=== PATIENT | female | born 1960 | race Caucasian/White ===

== ENCOUNTER 2016-09-26 00:27 | Emergency (ER) | payer SELFPAY ==
[~2016-09-26] VITALS: Wt 90.9 kg
== END 2016-09-26 04:38 | disposition left against medical advice (07) ==
LOC: FTE 00:27 → E/R 04:38
DX: Z53.21 Procedure and treatment not carried out due to patient leaving prior to being seen by health care provider (principal)

== ENCOUNTER 2016-09-26 13:10 | Emergency (ER) | payer OTHER ==
[~2016-09-26] VITALS: Ht 157.5 cm; Wt 89.0 kg
[2016-09-26 13:30] VITALS: Ht 157.5 cm; Wt 89.0 kg
[2016-09-26] MEDS ORDERED: ASPIRIN 325 MG TAB PO STA (20:42)
--- NOTE | 2016-09-26 20:45 | ERD ---
ER Documentation Chief Complaint Date/Time DATE: 09/26/16 TIME: 20:44 Chief Complaint htn asymptomatic HPI 56-year-old female with history of dyslipidemia ambulatory to the ED for evaluation of hypertension. Her has been very ill and she was at the care center yesterday. The nurse took her blood pressure told her it was high and that she should have it evaluated. Patient has also noticed occasional, transient episodes of unprovoked, vague, nonradiating, left upper chest discomfort. No accompanying shortness of breath, nausea, vomiting or diaphoresis. She denies leg pain or swelling. No abdominal pain or back pain. No headache or neck pain. Denies visual changes, focal weakness or numbness. No dysuria, polyuria, hematuria or flank pain. No URI symptoms or cough. No skin rash. No fevers or chills. Admits to feeling increasingly anxious recently due to her 's illness. ROS All systems reviewed and are negative except as per history of present illness. PMhx/Soc Reviewed in chart. As per HPI. History of Surgery: Yes ( x 2) Anesthesia Reaction: No Hx Neurological Disorder: No Hx Respiratory Disorders: No Hx Cardiac Disorders: No Hx Psychiatric Problems: No Hx Miscellaneous Medical Probl: No Hx Alcohol Use: No Hx Substance Use: No Hx Tobacco Use: No Smoking Status: Never smoker FmHx Hypertension but no stroke, diabetes, coronary artery disease or cancer Physical Exam Vitals Vital Signs Date Time Temp Pulse Resp B/P Pulse Ox O2 Delivery O2 Flow Rate FiO2 09/26/16 21:15 95 17 140/92 100 Room Air 09/26/16 13:30 98.1 99 20 178/85 99 Physical Exam Const: Alert. No acute distress. Head: Atraumatic Eyes: Normal Conjunctiva ENT: Normal External Ears, Nose and Mouth. Neck: Full range of motion. Nontender. No JVD. Resp: Breath sounds are equal and clear to auscultation bilaterally Cardio: Regular rate and rhythm, no murmurs. No chest wall tenderness Abd: Soft, non tender, non distended. Normal bowel sounds Skin: No petechiae or rashes Back: No midline or flank tenderness Ext: No cyanosis, or edema. No calf swelling or tenderness Neur: Awake and alert Psych: Appears anxious but not depressed. Result Diagram: 09/26/16201909/26/162019 Results 24 hrs Laboratory Tests Test 09/26/16 20:20 White Blood Count 7.610^3/ul Red Blood Count 4.8610^6/ul Hemoglobin 14.2g/dl Hematocrit 42.7% Mean Corpuscular Volume 87.9fl Mean Corpuscular Hemoglobin 29.2pg Mean Corpuscular Hemoglobin Concent 33.3g/dl Red Cell Distribution Width 14.2% Platelet Count 51059^3/UL Mean Platelet Volume 10.2fl Neutrophils % 68.5% Lymphocytes % 20.6% Monocytes % 8.5% Eosinophils % 1.1% Basophils % 0.8% Nucleated Red Blood Cells % 0.0/100WBC Neutrophils # 5.210^3/ul Lymphocytes # 1.610^3/ul Monocytes # 0.610^3/ul Eosinophils # 0.110^3/ul Basophils # 0.110^3/ul Nucleated Red Blood Cells # 0.010^3/ul Prothrombin Time 12.9Sec Prothrombin Time Ratio 1.0 INR International Normalized Ratio 0.97 Activated Partial Thromboplast Time 33.9Sec Sodium Level 145mmol/L Potassium Level 3.6mmol/L Chloride Level 102mmol/L Carbon Dioxide Level 28mmol/L Anion Gap 19 Blood Urea Nitrogen 10mg/dl Creatinine 0.66mg/dl Glucose Level 133mg/dl Calcium Level 9.6mg/dl Total Bilirubin 0.1mg/dl Direct Bilirubin 0.00mg/dl Indirect Bilirubin 0.1mg/dl Aspartate Amino Transf (AST/SGOT) 24IU/L Alanine Aminotransferase (ALT/SGPT) 19IU/L Alkaline Phosphatase 98IU/L Troponin I < 0.012ng/ml Total Protein 8.0g/dl Albumin 4.2g/dl Globulin 3.80g/dl Albumin/Globulin Ratio 1.10 Current Medications Medications (Trade) Dose Ordered Sig/Mike Route PRN Reason Start Time Stop Time Status Last Admin Dose Admin Aspirin (Aspirin) 325 mg ONCE STAT PO 09/26/16 20:42 09/26/16 20:44 DC 09/26/16 21:15 RHYTHM STRIP INTERPRETATION: Time: 20:47. Sinus rhythm. Ventricular rate 74. No ectopy. Indication: Hypertension and chest pain. EKG: Time: 20:49. Sinus rhythm. Ventricular rate 80, normal TX and QRS intervals. No acute ST segment elevation or depression. No axis deviation or ectopy. EP Impression: Normal EKG IMAGING: PROCEDURE: XR Chest. CLINICAL INDICATION: Chest pain TECHNIQUE: A single portable view of the chest was obtained. COMPARISON: None FINDINGS: The cardiomediastinal silhouette is within normal limits. The lungs and pleural spaces are clear. The soft tissues and osseous structures are unremarkable. IMPRESSION: No acute cardiopulmonary disease. RPTAT: HPNM Physician Stewart Date Time Electronically viewed and signed by Physician Stewart on 09/26/2016 21 :25 / Procedures/MDM DOCUMENTS REVIEWED: ED nurse, no prior records available REEXAMINATION/REEVALUATION: Time: 22:15 Doing well. Asymptomatic. Sinus rhythm without ectopy. Blood pressure 140/92. MEDICAL DECISION MAKIN-year-old female with history of dyslipidemia ambulatory to the ED for evaluation of hypertension and atypical chest pain. No ischemic EKG changes, elevated troponin or other signs of acute coronary syndrome. No radiographic evidence of pneumonia or pneumothorax. PERC negative and low risk for pulmonary embolism. Doubt aortic dissection. Symptoms likely related to anxiety although patient and family clearly understand that a cardiac etiology is not ruled out. Patient low risk for an acute event and she will need urgent follow-up within 72 hours for recheck of her blood pressure and further risk stratification. Stable for discharge precautionary instructions and outpatient follow-up as counseled. Counseled patient and family regarding diagnostic workup, diagnosis and need for followup. Understands to return to ED if symptoms recur, worsen or any other concerns. Departure Diagnosis: Primary Impression: Hypertension Hypertension type: essential hypertension Qualified Code: I10 - Essential hypertension Additional Impression: Chest pain of uncertain etiology Condition: Stable Patient Instructions: Chest Pain, Uncertain Cause, High Blood Pressure ( Hypertension) SUNG CANTOR MD Sep 26, 2016 20:45
[2016-09-26 20:49] LABS: ADD SCAN DIFF NO
[2016-09-26 20:52] LABS: CHLORIDE 102 mmol/L (97-110)
[2016-09-26 20:53] LABS: ALBUMIN 4.2 g/dl (3.3-4.9); SODIUM 145 mmol/L (135-144)
[2016-09-26 20:54] LABS: INR 0.97; POTASSIUM 3.6 mmol/L (3.5-5.1); PROTIME 12.9 Sec (12.2-14.2)
[2016-09-26 20:55] LABS: PARTIAL THROMBOPLASTIN TIME 33.9 Sec (25.0-35.0)
[2016-09-26 20:56] LABS: ALANINE AMINOTRANSFERASE 19 IU/L (13-69); ALKALINE PHOSPHATASE 98 IU/L (42-121); ANION GAP 19 (8-16); ASPARTATE AMINO TRANSFERASE 24 IU/L (15-46); BILIRUBIN,INDIRECT 0.1 mg/dl (0-1.1); BILIRUBIN,TOTAL 0.1 mg/dl (0.2-1.3); BLOOD UREA NITROGEN 10 mg/dl (7-20); CARBON DIOXIDE 28 mmol/L (21-31); CREATININE 0.66 mg/dl (0.44-1.00); GLUCOSE 133 mg/dl (70-220)
[2016-09-26 20:57] LABS: CALCIUM 9.6 mg/dl (8.4-10.2)
--- NOTE | 2016-09-26 21:26 | RADRPT ---
PROCEDURE: XR Chest. CLINICAL INDICATION: Chest pain TECHNIQUE: A single portable view of the chest was obtained. COMPARISON: None FINDINGS: The cardiomediastinal silhouette is within normal limits. The lungs and pleural spaces are clear. The soft tissues and osseous structures are unremarkable. IMPRESSION: No acute cardiopulmonary disease. RPTAT: HPNM Physician Stewart Date Time Electronically viewed and signed by Keon Blanco Physician on 09/26/2016 21:25 /
[2016-09-26 21:44] LABS: TROPONIN-I < 0.012 ng/ml (0.00-0.12)
[2016-09-26 21:48] LABS: BASOPHIL # 0.1 10^3/ul (0.0-0.1); BASOPHILS % 0.8 % (0.0-2.0); EOSINOPHILS # 0.1 10^3/ul (0.0-0.5); EOSINOPHILS % 1.1 % (0.0-7.0); HEMATOCRIT 42.7 % (37.0-47.0); HEMOGLOBIN 14.2 g/dl (12.0-16.0); LYMPHOCYTES # 1.6 10^3/ul (0.8-2.9); LYMPHOCYTES % 20.6 % (15.0-51.0); MEAN CORPUSCULAR HEMOGLOBIN 29.2 pg (29.0-33.0); MEAN CORPUSCULAR HGB CONC 33.3 g/dl (32.0-37.0); MEAN CORPUSCULAR VOLUME 87.9 fl (82.0-101.0); MEAN PLATELET VOLUME 10.2 fl (7.4-10.4); MONOCYTE # 0.6 10^3/ul (0.3-0.9); MONOCYTES % 8.5 % (0.0-11.0); NEUTROPHIL # 5.2 10^3/ul (1.6-7.5); NEUTROPHILS % 68.5 % (39.0-77.0); PLATELET COUNT 412 10^3/UL (140-415); RED BLOOD COUNT 4.86 10^6/ul (4.20-5.40); RED CELL DISTRIBUTION WIDTH 14.2 % (11.5-14.5); WHITE BLOOD COUNT 7.6 10^3/ul (4.8-10.8)
[2016-09-26 22:58] VITALS: BP 140/90; PULSE 90; RESP 17
== END 2016-09-26 22:59 | disposition home or self-care (01) ==
LOC: E/R 13:10
DX: I10 Essential (primary) hypertension (principal)
CPT/HCPCS: 36415; 71010; 80053; 84484; 85025; 85610; 85730; 93005; Z7502; Z7610

== ENCOUNTER 2016-09-30 15:30 | Emergency (ER) | payer OTHER ==
[~2016-09-30] VITALS: Ht 160 cm; Wt 93.0 kg
[2016-09-30 15:34] VITALS: Ht 160 cm; Wt 93.0 kg
[2016-09-30] MEDS ORDERED: HYD25 PO (16:46)
--- NOTE | 2016-09-30 16:53 | ERD ---
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 The patient states elevated blood pressure. She describes no symptoms. No headache chest pain or shortness of breath. She is tearful and states that her is recently hospitalized for severe stroke. He is critically ill. The patient was seen here several days ago with elevated blood pressure. She was not initiated on blood pressure medication given her grief reaction and was advised to follow-up with primary care physician. She has not been able to do some blood pressure still remains in the 180-190 systolic range. Again, no headache chest pain or shortness of breath. ROS All systems reviewed and are negative except as per history of present illness. Medications Home Meds Active Scripts Hydrochlorothiazide* (Hydrochlorothiazide*) 25 Mg Tab, 25 MG PO DAILY, #30 TAB Prov:LIZA JACKSON MD 09/30/16 PMhx/Soc History of Surgery: Yes ( x 2) Anesthesia Reaction: No Hx Neurological Disorder: No Hx Respiratory Disorders: No Hx Cardiac Disorders: No Hx Psychiatric Problems: No Hx Miscellaneous Medical Probl: No Hx Alcohol Use: No Hx Substance Use: No Hx Tobacco Use: No FmHx Family History: No diabetes Physical Exam Vitals Vital Signs Date Time Temp Pulse Resp B/P Pulse Ox O2 Delivery O2 Flow Rate FiO2 09/30/16 15:34 96 20 198/102 98 Physical Exam General: Well developed, well nourished, no acute distress Head: Normocephalic, atraumatic. Eyes: Pupils equally reactive, EOM intact ENT: Moist mucous membranes Neck: Supple, no lymphadenopathy Respiratory: Lungs clear bilaterally, no distress Cardiovascular: RRR, no murmurs, rubs, or gallops Abdominal: Soft, non-tender, non-distended, no peritoneal signs : Deferred MSK: No edema, no unilateral swelling, 5/5 strength Neurologic: Alert and oriented, moving all extremities, normal speech, no focal weakness, no cerebellar signs Skin: No rash Psych: Normal mood Procedures/MDM Patient's blood pressure was elevated (>120/80) but appears stable without evidence of hypertensive emergency or urgency. The patient was counseled about the risks of hypertension and urged to pursue outpatient monitoring and therapy within a week with their primary care physician. The risks outweigh benefits to rapidly lower the patient's blood pressure given likely prolonged elevation. This is possibly related to grief reaction however the patient has had multiple blood pressures have been significantly elevated. Initiation of low-dose hydrochlorothiazide would be absolutely reasonable. The patient was advised to follow-up with primary care physician, stop taking blood pressure medication if she feels presyncopal, orthostatic or lightheaded. We discussed follow up with the patient's primary care doctor within 24 to 48 hours as needed. We also discussed return to the emergency room for worsening symptoms or worsening condition. Outpatient referral: Primary care Discharge Medications: Hydrochlorthiazide 25 mg once daily Departure Diagnosis: Primary Impression: Hypertension Hypertension type: essential hypertension Qualified Code: I10 - Essential hypertension Condition: Stable Patient Instructions: High Blood Pressure (Hypertension) Referrals: [facility] Usted se croft hecho un examen mdico de control que le indica que no est en yaritza condicin que requiera tratamiento urgente en el Departamento de Emergencia. Un estudio ms profundo y el tratamiento de lira condicin pueden esperar sin ningn riesgo hasta que usted sea atendida/o en el consultorio de lira mdico o yaritza cl froilan. Es responsabilidad suya arreglar yaritza mamta para el seguimiento del lin. MANEJO DE CONDICIONES NO URGENTES EN EL FUTURO 1) Si usted tiene un mdico de atencin primaria: Usted debera llamar a lira mdico de atencin primaria antes de venir al departamento de emergencia. Despus de las horas de consultorio, lira doctor o lira asociado/a est disponible por telfono. El mdico o enfermero de carlos enrique en el servicio telefnico puede asesorarle por estephania medio para atender el problema, o lin contrario se puede programar yaritza mamta. 2) Si usted no tiene un mdico de atencin primaria: Llame al mdico o clnica de referencia que aparece abajo donnell las horas de consultorio para hacer yaritza mamta para que le vean. CLINICAS: [facility] [phone] [facility] [phone] [facility] [phone] [place] [id number] [phone] [facility]. [place] [address] [phone] [facility]. [phone] [address] [facility]. [facility] () ted se croft hecho un examen mdico de control que le indica que no est en yaritza condicin que requiera tratamiento urgente en el Departamento de Emergencia. Un estudio ms profundo y el tratamiento de lira condicin pueden esperar sin ningn riesgo hasta que usted sea atendida/o en el consultorio de lira mdico o yaritza cl froilan. Es responsabilidad suya arreglar yaritza mamta para el seguimiento del lin. MANEJO DE CONDICIONES NO URGENTES EN EL FUTURO 1) Si usted tiene un mdico de atencin primaria: ted debera llamar a lira mdico de atencin primaria antes de venir al departamento de emergencia. Despus de las horas de consultorio, lira doctor o lira asociado/a est disponible por telfono. El mdico o enfermero de carlos enrique en el servicio telefnico puede asesorarle por estephania medio para atender el problema, o lin contrario se puede programar yaritza mamta. 2) Si usted no tiene un mdico de atencin primaria: Llame al mdico o condado institucions de referencia que aparece abajo donnell las horas de consultorio para hacer yaritza mamta para que le vean. SI USTED NO PUEDE PAGAR PARA PRIYANKA UN MEDICO puede ir a: [facility] [address] [place] [address] [facility] [address] [place] [address] [facility] [address] [place] [address] [facility] [address] [place], [place] [phone] Additional Instructions: Llame al doctor nombrado abajo (Referral Sources) MAANA y marcelle yaritza MAMTA PARA DENTRO DE YARITZA SEMANA. Dgale a la secretaria que nosotros le instruimos hacer esta mamta.Avise o llame si lira condicin se empeora antes de la mamta. LIZA JACKSON MD Sep 30, 2016 16:53
[2016-09-30 17:13] VITALS: BP 129/89; PULSE 95
== END 2016-09-30 17:18 | disposition home or self-care (01) ==
LOC: E/R 15:30
DX: I10 Essential (primary) hypertension (principal); R40.2142 Coma scale, eyes open, spontaneous, at arrival to emergency department
CPT/HCPCS: 99283

== ENCOUNTER 2016-11-08 09:09 | Emergency (ER) | payer OTHER ==
[~2016-11-08] VITALS: Ht 160 cm; Wt 100.0 kg
[~2016-11-08 09:09] MED LIST: HYD25 PO
[2016-11-08 09:23] VITALS: Ht 160 cm; Wt 100.0 kg
[2016-11-08] MEDS ORDERED: PHEN-537 PO (10:51)
[2016-11-08] MEDS ORDERED: NITR-58 PO (10:51)
[2016-11-08 10:58] LABS: URINE BLOOD (Dip) POC 3+ (NEGATIVE)
--- NOTE | 2016-11-08 11:11 | ERD ---
ER Documentation Chief Complaint Date/Time DATE: 11/08/16 TIME: 11:09 Chief Complaint URINE RETENTION AND PAIN WITH URINATION HPI This is a 56-year-old female with a history of hypertension presenting to the emergency department complaining of painful urination, urgency and frequency since yesterday. Patient admits to having mild pelvic pain, she describes it as a pressure to urinate. Patient denies any hematuria or fevers. She denies any flank pain. She has not tried any medications for this. ROS All systems reviewed and are negative except as per history of present illness. Medications Home Meds Active Scripts Phenazopyridine Hcl* (Pyridium*) 100 Mg Tab, 100 MG PO TID, #14 TAB Prov:VICKY DIGGS PA-C 11/08/16 Nitrofurantoin Monohyd Macrocr* (Macrobid*) 100 Mg Capsr, 100 MG PO BID for 7 Days, CAP Prov:VICKY DIGGS PA-C 11/08/16 Hydrochlorothiazide* (Hydrochlorothiazide*) 25 Mg Tab, 25 MG PO DAILY, #30 TAB Prov:LIZA JACKSON MD 09/30/16 Allergies Allergies: Coded Allergies: No Known Allergy (Unverified , 11/08/16) PMhx/Soc History of Surgery: Yes ( x 2) Anesthesia Reaction: No Hx Neurological Disorder: No Hx Respiratory Disorders: No Hx Cardiac Disorders: Yes (HTN) Hx Psychiatric Problems: No Hx Miscellaneous Medical Probl: No Hx Alcohol Use: No Hx Substance Use: No Hx Tobacco Use: No Physical Exam Vitals Vital Signs Date Time Temp Pulse Resp B/P Pulse Ox O2 Delivery O2 Flow Rate FiO2 11/08/16 09:23 98.2 98 18 145/75 98 Physical Exam General: well-developed/well-nourished, in no apparent distress, non-toxic appearing HENT: NC/AT Eyes: Conjunctiva normal Neck: Supple Pulm: CTA bilaterally, normal breathing CV: Normal S1S2 GI: Soft, non-distended, normal bowel sounds, TTP on suprapubic region Back: No midline tenderness, no masses, No CVAT Ext: No clubbing, cyanosis, or edema Neuro: Alert and orientated Skin: intact, normal turgor Psych: Normal mood and mentation Results 24 hrs Laboratory Tests Test 5/4/17 10:59 Bedside Urine pH (LAB) 6.5 Bedside Urine Protein (LAB) 1+ Bedside Urine Glucose (UA) Negative Bedside Urine Ketones (LAB) Negative Bedside Urine Blood 3+ Bedside Urine Nitrite (LAB) Negative Bedside Urine Leukocyte Esterase (L 2+ Procedures/MDM This is a 56-year-old female with a history of hypertension presents to the ER with urinary tract infection. Low suspicion for pyelonephritis, nephrolithiasis , ovarian torsion due to physical examination and diagnostic testing. She is afebrile, appears well and nontoxic peer urine dipstick showed +2 leukocyte esterase, urine culture was sent out. hemodynamically stable for discharge. Prescriptions Macrobid and Pyridium have been given to take as directed. Strict precautions were given to return to the ER if not improving as expected or for any worsening signs and symptoms Departure Diagnosis: Primary Impression: UTI (urinary tract infection) Condition: Stable Patient Instructions: Understanding Urinary Tract Infections (UTIs) Additional Instructions: Visite a lira shruthi sunshine para un EXAMEN.Regrese a estas instalaciones si no se mejora celso esperbamos o celso le dijimos. [place] toda la medicina taras y celso se le indic. Regrese a estas instalaciones si no se mejora celso esperbamos o celso le dijimos. VICKY DIGGS PA-C November 08, 2016 11:10
== END 2016-11-08 11:16 | disposition home or self-care (01) ==
LOC: FTE 09:09
DX: N39.0 Urinary tract infection, site not specified (principal); I10 Essential (primary) hypertension
CPT/HCPCS: 81003; 87086; Z7502; 99283